=== PATIENT | male | born 1950 ===

== ENCOUNTER 2016-07-31 08:42 | Emergency (ER) | payer MEDICARE, OTHER ==
[~2016-07-31] VITALS: Ht 175.3 cm; Wt 76.0 kg
[2016-07-31 08:43] VITALS: Ht 175.3 cm; Wt 76.0 kg
--- NOTE | 2016-07-31 09:25 | ERD ---
ER Documentation Chief Complaint Date/Time DATE: 07/31/16 TIME: 09:21 Chief Complaint pt bib self with c/o rash to face HPI 66-year-old male who presented to emergency department for facial rash that started Monday. Patient stated that his rash started around his mouth and cheeks. Denies headache, loss of consciousness, dizziness, blurry vision, changes in vision, photophobia, facial pain, ear pain, throat pain, difficulty swallowing, neck pain, shoulder pain, chest pain, cough, hemoptysis, abdominal pain, back pain, loss of appetite, nausea, vomiting, changes in his diet, changes in his detergents, hematochezia, diarrhea, constipation, urinary symptoms, bladder and bowel incontinences, extremity weakness, extremity tenderness, numbness or tingling sensation, difficulty walking, recent travel, recent exposure to illness, recent antibiotic use in the last 3 months, fever, chills. Allergy: No known drug allergies. PMH:. Liver cirrhosis. Hyperlipidemia. Hypertension. Medications: Lamivudine 100 mg, phosphate 250 mg, pravastatin 40 mg, Norvasc 5 mg, mycophenolate 250 mg, tacrolimus 1 mg. Surgery: Liver transplant. Family history: Denies. Primary Social History: Retired. Denies smoking, use of alcohol, use of illegal drugs. ROS All systems reviewed and are negative except as per history of present illness. Medications Home Meds Active Scripts Loratadine (Loratadine) 10 Mg Tab.rapdis, 10 MG PO DAILY for 5 Days Prov:ARTURO GALVAN F 07/31/16 Diphenhydramine Hcl* (Benadryl*) 25 Mg Cap, 25 MG PO Q6 Y for ITCHING/RASH, #30 TAB Prov:PASARTURO LAZARO F 07/31/16 Hydrocortisone* Topical (Hydrocortisone* Topical) 2.5%-28.3 Gm Cream..g., 1 APPLIC TOP BID, #1 TUB Prov:ARTURO GALVAN F 07/31/16 Prednisone (Prednisone) 20 Mg Tablet, 40 MG PO DAILY for 5 Days, TAB Prov:PASILABANDEOAR F 07/31/16 Allergies Allergies: Coded Allergies: No Known Allergy (Unverified , 07/31/16) Physical Exam Vitals Vital Signs Date Time Temp Pulse Resp B/P Pulse Ox O2 Delivery O2 Flow Rate FiO2 07/31/16 08:43 97.6 84 16 156/82 98 Physical Exam CONSTITUTIONAL: Well-appearing; well-nourished; in no apparent distress. HEAD: Normocephalic; atraumatic. EYES: Conjunctiva clear, sclera non-icteric, EOM intact. PERRLA. No rashes/ hives/vesicular lesions around bilateral eyes. Ears: Hearing intact. EACs clear, TMs non-bulging, non-inflamed, translucent & mobile, ossicles normal appearance, No obstructions, no erythema, no discharges Nose: No obstructions. No polyps. No external lesions. Mucosa non-inflamed. No external lesions, septum and turbinates normal. No rhinorrhea. No discharges. Frontal sinus is non-tender to palpation. Maxillary sinus is non-tender to palpation. MOUTH: Moist mucous membranes, no lesion, no obstructions, no vesicles, no thrush, patent airway. Throat: Uvula in midline. Right tonsil is +1 with no erythema, no exudate. Left tonsil is +1 with no erythema, no exudate. No drooling. No difficulty swallowing. Tolerating secretions well. Good gag reflex. Patent airway. Speaks full and clear sentences. Neck: Supple, without lesions, bruits, or adenopathy. No mass. Thyroid non- enlarged and non-tender to palpation. CHEST: Symmetrical chest. Respirations even and not labored. No retractions noted. CARDIOVASCULAR: Normal S1, S2. RRR. No murmurs, gallops. RESPIRATORY: Normal chest excursion with respiration; breath sounds clear and equal bilaterally; no wheezes, rhonchi, or rales. Breathing even and unlabored. Speaking in clear, full, and complete sentences w/ ease. ABDOMEN: Normal bowel sounds normal. Soft, round, non-distended, non-guarding, no tenderness, no rebound, no organomegaly, no masses, no pulsating abdominal mass. No hernia. No peritoneal signs. : No CVA tenderness. BACK: Symmetrical shoulder. Spine is midline without deformity, tenderness. No evidence of trauma or deformity. PELVIS: Stable pelvis. No evidence of trauma or deformity. MUSCULOSKELETAL: Normal gait and station. No misalignment, asymmetry, crepitation, defects, tenderness, masses, effusions, decreased range of motion, instability, atrophy or abnormal strength or tone in the head, neck, spine, ribs , pelvis or extremities. No calf tenderness. NEUROVASCULAR: Distal pulses are present. Pedal pulse are present, equal, and normal. Capillary refills are < 2 seconds. NEUROLOGIC: Alert and oriented x4. Speaks full and clear sentences. Cranial Nerves II-XII normal. Sensation to pain, touch, and proprioception normal. Grossly unremarkable. No neurologic deficits. Romberg test is negative. PSYCHOLOGICAL: The patients mood and manner are appropriate. No hallucinations , delusions. Not SI. Not HI. Has the capacity to decide for self SKIN: Normal for age and ethnicity; warm; dry; good turgor; no apparent lesions or exudates. No hives, discoloration. Rashes to bilateral lower cheeks that is described as dry, eczematous. Intact. Procedures/MDM Examination: Please see physical examination. Disease process, medical treatment was explained to the patient and family member. They verbalized understanding and agreed with the medical treatment, and follow-up care. Re-evaluation: Denies headache, dizziness, blurry vision, eye pain, eye itchiness, foreign body sensation to bilateral eyes, ear pain, ear itchiness, neck pain, throat pain, throat tightness, throat itchiness, shoulder pain, chest pain, back pain, abdominal pain. Observed drinking one cup of water. No nausea and vomiting. Tolerating secretions. No difficulty swallowing. Patent airway. Speaks full and clear sentences. Respirations even and unlabored. Lung sounds are clear to auscultation. There is no right upper/right lower/ epigastric/left upper/lower abdominal tenderness and light and deep palpation. Consultation: None. Differential diagnosis: Anaphylaxis versus allergic reaction versus scabies versus dermatitis Medical decision makin-year-old male who presents to the emergency department for facial rash since Monday. Patient's complaint, patient's history about his complaint, my physical findings are consistent with my final diagnosis of allergic reaction, atopic dermatitis, rash. Medications prescribed are the following: Prednisone. Hydrocortisone. Benadryl. Patient and family member are made aware of the side effects and adverse reactions of the medications prescribed. Instructed on when to seek emergent and medical attention in case allergic/anaphylactic reactions or severe side effects and or adverse reactions to medications. Patient and family member verbalized understanding. Patient instructed Instructed to follow-up with his PCP in 24-48 hours. PCP to refer patient to sound effects technician. Instructed to Call 911 for chest pain, shortness of breath. Advised to come back here in ED as soon as possible for severity of symptoms which includes but not limited to: any new symptoms; shortness of breath/difficulty of breathing; cardiovascular changes; severe gastrointestinal symptoms; signs and symptoms of bleeding and or infection; signs of compartment syndrome/neurovascular changes; neurological changes/deficits. Patient and family member verbalized understanding. Upon discharge, patient is alert and oriented x 4, speaks full and clear sentences, denies pain, has no neurological deficits, has no neurovascular deficits, difficulty of breathing. Breathing even and unlabored. Lung sounds are clear to auscultation. Not in distress. Appears comfortable. Ambulatory with steady gait. Appears satisfied with care provided here in ED. Departure Diagnosis: Primary Impression: Rash Condition: Stable Additional Instructions: Patient instructed Instructed to follow-up with his PCP in 24-48 hours. PCP to refer patient to sound effects technician. Instructed to Call 911 for chest pain, shortness of breath. Advised to come back here in ED as soon as possible for severity of symptoms which includes but not limited to: any new symptoms; shortness of breath/difficulty of breathing; cardiovascular changes; severe gastrointestinal symptoms; signs and symptoms of bleeding and or infection; signs of compartment syndrome/neurovascular changes; neurological changes/deficits. Patient and family member verbalized understanding. ARTURO GALVAN July 31, 2016 09:25
[2016-07-31] MEDS ORDERED: PRED20TA PO (09:29)
[2016-07-31] MEDS ORDERED: BEN25 PO (09:29)
[2016-07-31] MEDS ORDERED: HC30CR25 TOP (09:29)
[2016-07-31] MEDS ORDERED: LORA10TA58 PO (09:30)
== END 2016-07-31 09:56 | disposition home or self-care (01) ==
LOC: FTE 08:42
DX: R21 Rash and other nonspecific skin eruption (principal); I10 Essential (primary) hypertension
CPT/HCPCS: 99283